=== PATIENT | female | born 1970 | race Caucasian/White ===

== ENCOUNTER 2016-10-31 20:12 | Emergency (ER) | payer BC ==
[2016-10-31 20:26] VITALS: BP 109/68
--- NOTE | 2016-10-31 21:22 | UC ---
Throat Pain/Nasal Noah HPI - HPI Summary HPI Summary: sore throat for 2 weeks, feels like it is on fire. [place] music festival till yesterday. - History of Current Complaint Chief Complaint: UCGeneralIllness Stated Complaint: SORE THROAT Time Seen by Provider: 10/31/16 21:08 Hx Obtained From: Patient Hx Last Menstrual Period: NONE ?: No Onset/Duration: Sudden Onset, Lasting Days Severity: Severe Associated Signs & Symptoms: Positive: Dysphagia, Hoarseness - Epiglottits Risk Factors Epiglottis Risk Factors: Negative - Allergies/Home Medications Allergies/Adverse Reactions: Allergies Allergy/AdvReac Type Severity Reaction Status Date / Time No Known Allergies Allergy Verified 10/31/16 20:26 Home Medications: Home Medications ALPRAZolam TAB* [Xanax TAB*] 0.25 mg PO TID PRN 10/31/16 [History Confirmed 05/07] Cholecalciferol TAB* [Vitamin D TAB*] 2,000 units PO DAILY 10/31/16 [History Confirmed 10/31/16] Wyrixvqjgliztfeq-Wboabxiari-OF [Night Time Cold & Flu Rel 15-6.25-325 mg] 1 cap PO ONCE PRN 10/31/16 [History Confirmed 10/31/16] Estradiol [Estrace] 2 mg PO DAILY 10/31/16 [History Confirmed 10/31/16] Ibuprofen TAB* [Motrin TAB* 600 MG] 600 mg PO Q6H PRN 10/31/16 [History Confirmed 10/31/16] PMH/Surg Hx/FS Hx/Imm Hx Previously Healthy: Yes - Surgical History Surgical History: Yes Surgery Procedure, Year, and Place: multiple reproductive surgeries including hysterectomy. SX REPAIR OF L ANKLE FX - Family History Known Family History: Negative: Cardiac Disease, Hypertension - Social History Alcohol Use: Occasionally Substance Use Type: None Smoking Status (MU): Current Some Day Smoker Type: Cigarettes Amount Used/How Often: 1/2 PPD Length of Time of Smoking/Using Tobacco: 20 YRS Have You Smoked in the Last Year: Yes Review of Systems Constitutional: Negative Skin: Negative Eyes: Negative ENT: Sore Throat, Ear Ache Respiratory: Cough Cardiovascular: Negative Gastrointestinal: Negative Genitourinary: Negative Motor: Negative Neurovascular: Negative Musculoskeletal: Negative Neurological: Negative All Other Systems Reviewed And Are Negative: Yes Physical Exam Triage Information Reviewed: Yes Appearance: Well-Nourished, Ill-Appearing, Pain Distress Vital Signs: Initial Vital Signs Temp 98.6 F 10/31/16 20:20 Pulse 73 10/31/16 20:20 Resp 16 10/31/16 20:20 BP 109/68 10/31/16 20:20 Pulse Ox 99 10/31/16 20:20 Vital Signs Reviewed: Yes Eye Exam: Normal ENT: Positive: Pharyngeal erythema, TM bulging, Tonsillar swelling, Tonsillar exudate Dental Exam: Normal Neck exam: Normal Respiratory Exam: Normal Respiratory: Positive: Chest non-tender, Lungs clear, Normal breath sounds Cardiovascular Exam: Normal Cardiovascular: Positive: RRR, No Murmur, Pulses Normal Abdominal Exam: Normal Abdomen Description: Positive: Nontender, No Organomegaly, Soft Bowel Sounds: Positive: Present Musculoskeletal Exam: Normal Musculoskeletal: Positive: Strength Intact, ROM Intact, No Edema Neurological Exam: Normal Neurological: Positive: Alert, Muscle Tone Normal Psychological Exam: Normal Skin Exam: Normal Throat Pain/Nasal Course/Dx - Course Course Of Treatment: hx obtained, exam performed, meds reviewed, rapid strep obtained and is negative. - Differential Dx/Diagnosis Differential Diagnosis/HQI/PQRI: Influenza, Laryngitis, Otitis Media, Pharyngitis, Sinusitis, URI Provider Diagnoses: pharyngitis Discharge - Discharge Plan Condition: Stable Disposition: HOME Patient Education Materials: Pharyngitis (ED) Additional Instructions: 1. your strep test was negative 2. Increas your fluid intake and get plenty of rest 3. Warm tea with kal honey and lemon will soothe the throat 4. start taking the prednisone tomorrow morning.
== END 2016-10-31 21:58 | disposition home or self-care (01) ==
LOC: UCCORT 20:12
DX: J02.9 Acute pharyngitis, unspecified (principal)
CPT/HCPCS: 87651; 99211; G0463